=== PATIENT | female | born 1960 | race Caucasian/White ===

== ENCOUNTER 2019-10-24 07:42 | Observation (INO) | payer BC ==
[2019-10-24] MEDS ORDERED: LABETALOL HCL 5 MG/ML 20ML VIAL IV ONE (08:09)
[2019-10-24] MEDS ORDERED: MORPHINE SULFATE 4 MG/1ML SYG ONE ×2 (08:09→09:09)
[2019-10-24] MEDS ORDERED: ONDANSETRON HCL 4 MG/2 ML VIAL ONE ×2 (08:14→10:42)
[2019-10-24 08:28] LABS: BASOPHILS % (AUTO) 1.1 % (0.0-5.0); HEMATOCRIT 45.6 % (36-48); LYMPHOCYTES % (AUTO) 36.9 % (21.0-51.0); MEAN CORPUSCULAR HEMOGLOBIN 30.2 pg (27.0-33.0); MEAN CORPUSCULAR HGB CONC 33.6 g/dL (32.0-36.0); MEAN CORPUSCULAR VOLUME 90.1 fL (79-99); MONOCYTES % (AUTO) 11.8 % (3.0-13.0); NEUTROPHILS % (AUTO) 49.1 % (40.0-77.0); PLATELET COUNT (AUTO) 269 K/uL (130-400); RED BLOOD CELL COUNT(AUTO) 5.06 MIL/uL (4.00-5.50); RED CELL DISTRIBUTION WIDTH 12.4 % (11.0-15.5); WHITE BLOOD COUNT (AUTO) 8.4 K/uL (4.8-10.8)
[2019-10-24 08:30] LABS: APPEARANCE,URINE Clear (CLEAR); BILIRUBIN,URINE Negative (NEGATIVE); GLUCOSE, URINE (UA) Negative (NEGATIVE); KETONES,URINE Negative (NEGATIVE); LEUKOCYTE ESTERASE ,URINE Negative (NEGATIVE); NITRATE,URINE Negative (NEGATIVE); OCCULT BLOOD,URINE Negative (NEGATIVE); PROTEIN,URINE Negative (NEGATIVE); UROBILINOGEN,URINE 0.2 mg/dL (0.2-1.0)
[2019-10-24 08:37] LABS: COLOR,URINE COLORLESS (YELLOW)
[2019-10-24 08:39] LABS: CREATININE 0.9 mg/dL (0.5-1.5); POTASSIUM 3.4 mmol/L (3.5-5.1)
[2019-10-24 08:43] LABS: ALBUMIN 4.2 g/dL (3.5-5.0); BILIRUBIN,TOTAL 0.7 mg/dL (0.2-1.0); TOTAL PROTEIN, SERUM 7.8 g/dL (6.0-8.3)
[2019-10-24 08:44] LABS: INR 0.94 (0.85-1.15); PARTIAL THROMBOPLASTIN TIME 26.5 SEC (26.3-35.5); PROTHROMBIN TIME 9.9 SEC (9.6-11.6)
[2019-10-24] MEDS ORDERED: DEXTROSE 5% IV PRN (09:00)
[2019-10-24] MEDS ORDERED: WATER IV PRN (09:00)
[2019-10-24] MEDS ORDERED: LABETALOL HCL IV PRN (09:00)
[2019-10-24] MEDS ORDERED: CLONIDINE HCL 0.1 MG TABLET ONE (10:10)
[2019-10-24] MEDS ORDERED: AMLODIPINE BESYLATE 5 MG TAB PO SCH (10:26)
[2019-10-24] MEDS ORDERED: CLONIDINE HCL 0.1 MG TABLET PO PRN (10:30)
[2019-10-24] MEDS ORDERED: ALPRAZOLAM 0.5 MG TABLET PO PRN (10:30)
[2019-10-24] MEDS ORDERED: AMLODIPINE BESYLATE 5 MG TAB ONE (11:05)
[2019-10-24] MEDS ORDERED: LOSARTAN 50 MG TABLET ONE (11:05)
[2019-10-24] MEDS ORDERED: SODIUM CHLORIDE 0.9% 1000ML 1,000 ML IV SCH (12:59)
[2019-10-24] MEDS ORDERED: LACTULOSE 20 GM/30 ML UDCUP PO PRN (13:00)
[2019-10-24] MEDS ORDERED: ONDANSETRON HCL 4 MG/2 ML VIAL IV PRN (13:00)
[2019-10-24] MEDS ORDERED: MAG HYDROX/AL HYDROX/SIMETH ES 30 ML SUSP UDCUP PO PRN (13:00)
[2019-10-24] MEDS ORDERED: LIDOCAINE HCL 2% VISCOUS 30 ML, MAG HYDROX/AL HYDROX/SIMETH 30 ML, BELLADONNA-PHENOBARB... PO PRN ×3 (13:00)
[2019-10-24] MEDS ORDERED: METOCLOPRAMIDE 10 MG/2 ML VIAL ONE (13:11)
[2019-10-24] MEDS ORDERED: LIDOCAINE HCL 2% VISCOUS 30 ML, MAG HYDROX/AL HYDROX/SIMETH 30 ML, DICYCLOMINE HCL 20 MG PO PRN ×3 (13:15)
[2019-10-24] MEDS ORDERED: POTASSIUM CHLORIDE 20MEQ/100ML 100 ML IV PRN (13:15)
[2019-10-24] MEDS ORDERED: POTASSIUM CHLORIDE 20 MEQ ERTAB PO PRN (13:15)
[2019-10-24] MEDS ORDERED: LIDOCAINE HCL-MPF 1% 2ML VIAL IJ PRN (13:15)
[2019-10-24] MEDS ORDERED: COMPOUND PO MISCELLANEOUS 1 EACH MISC MISC PRN (13:15)
[2019-10-24] MEDS ORDERED: METOCLOPRAMIDE 10 MG/2 ML VIAL IVP PRN (13:15)
[2019-10-24] MEDS ORDERED: ACETAMINOPHEN EXTRA STRENGTH 500 MG TABLET PO PRN (13:15)
[2019-10-24] MEDS ORDERED: POTASSIUM CHLORIDE 10% ELIXIR 20 MEQ/15 ML UDCUP PO PRN (13:15)
[2019-10-24] MEDS ORDERED: ESTR1PAT87 TD (14:14)
[2019-10-24] MEDS ORDERED: TRAZ-185 PO ×2 (14:14→18:41)
[2019-10-24] MEDS ORDERED: FLUT44HFA IH (14:14)
[2019-10-24] MEDS ORDERED: LOSA50TA64 PO ×2 (14:14→18:41)
[2019-10-24] MEDS ORDERED: CYCL5TAB PO (14:14)
[2019-10-24] MEDS ORDERED: CALC600T12 PO (14:14)
[2019-10-24] MEDS ORDERED: MAGN300C PO (14:14)
--- NOTE | 2019-10-24 17:23 | NUR ---
Initial Assessment SW met with patient. Patient lives with spouse. No home services. DME: [facility]. Patient is able to complete ADL's independently and drives. 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 PCP is Dr. Maddy Castaneda. Pharmacy is [facility] located in [place]. DCP is home. Addendum: 10/24/19 at 1725 by KRISTEN ZUNIGA SS Amended: Links added.
[2019-10-24] MEDS ORDERED: CLON0.1T PO (18:41)
--- NOTE | 2019-10-24 19:44 | NUR ---
DISCHARGE INSTRUCTIONS PROVIDED IN ED ROOM 14. PT MUST CALL TO SCHEDULE FOLLOW UP APPT TO BE SEEN WITHIN 2-4DAYS. EDUCATED ON DX, S/S TO MONITOR FOR, WHEN TO SEEK EMERGENCY CARE VS DIAL 911. NEW RX TRANSMITTED TO [facility]. VERIFIED IT WAS REC'D. DISCUSSED PURPOSE, ROUTE, FREQUENCY OF TREATMENT WELL SIDE EFFECTS AND ADVERSE EFFECTS. PIV ALREADY REMOVED BY ER NURSE. PT DEPARTED ER WITH AT SIDE. IN STABLE CONDITION.
[2019-10-24] MEDS ORDERED: TRAZODONE HCL 100 MG TABLET PO SCH (21:00)
[2019-10-24] MEDS ORDERED: FAMOTIDINE 20MG TAB 20 MG TAB PO SCH (21:00)
[2019-10-25] MEDS ORDERED: LOSARTAN 100 MG TABLET PO SCH (09:00)
== END 2019-10-24 19:59 | disposition home or self-care (01) ==
LOC: EDH 07:42 → EDHIP 09:48
PROVIDERS: ADMIT Internal Medicine; ATTEND Internal Medicine
DX: I16.0 Hypertensive urgency (principal); R51 Headache; K21.9 Gastro-esophageal reflux disease without esophagitis; M41.9 Scoliosis, unspecified; M85.80 Other specified disorders of bone density and structure, unspecified site; M16.6 Other bilateral secondary osteoarthritis of hip; M47.819 Spondylosis without myelopathy or radiculopathy, site unspecified; J45.909 Unspecified asthma, uncomplicated; I34.1 Nonrheumatic mitral (valve) prolapse; G43.909 Migraine, unspecified, not intractable, without status migrainosus; F41.1 Generalized anxiety disorder; E04.2 Nontoxic multinodular goiter; I10 Essential (primary) hypertension; Z90.79 Acquired absence of other genital organ(s); Z90.710 Acquired absence of both cervix and uterus; Z79.51 Long term (current) use of inhaled steroids; Z79.899 Other long term (current) drug therapy; Z88.8 Allergy status to other drugs, medicaments and biological substances
CPT/HCPCS: 36415; 70450; 80053; 81003; 84443; 84484; 85025; 85610; 85730; 93005; 99291; G0378 ×7; J2270 ×2; J2405 ×2; J2765; J3490 ×2; J7060

== ENCOUNTER → 2019-10-31 | Outpatient (CLI) | payer BC ==
[~2019-10-31] MED LIST: CALC600T12 PO; CLON0.1T PO; ESTR1PAT87 TD; FLUT44HFA IH; LOSA50TA64 PO; MAGN300C PO; TRAZ-185 PO
== END | disposition home or self-care (01) ==
LOC: RAH 07:43
PROVIDERS: ATTEND Internal Medicine
DX: I07.1 Rheumatic tricuspid insufficiency (principal); I70.1 Atherosclerosis of renal artery; I10 Essential (primary) hypertension
CPT/HCPCS: 76770; 93306; 93356; 93975

== ENCOUNTER → 2019-11-22 | Outpatient (CLI) | payer BC ==
[~2019-11-22] MED LIST changes: +IOHEXOL-350 50ML VIAL IV ONE; +IOHEXOL-350 75 ML VIAL IV ONE
== END | disposition home or self-care (01) ==
LOC: RAH 09:02
PROVIDERS: ATTEND Internal Medicine
DX: K76.0 Fatty (change of) liver, not elsewhere classified (principal); I70.1 Atherosclerosis of renal artery; K57.30 Diverticulosis of large intestine without perforation or abscess without bleeding
CPT/HCPCS: 74175; Q9967 ×2

== ENCOUNTER → 2020-02-27 | Outpatient (CLI) | payer BC ==
[~2020-02-27] MED LIST changes: -CALC600T12 PO; +CALC600T15 PO; -IOHEXOL-350 50ML VIAL IV ONE; -IOHEXOL-350 75 ML VIAL IV ONE
== END | disposition home or self-care (01) ==
LOC: RAH 13:17
PROVIDERS: ATTEND Internal Medicine
DX: I10 Essential (primary) hypertension (principal); I34.1 Nonrheumatic mitral (valve) prolapse
CPT/HCPCS: 93880

== ENCOUNTER → 2020-06-02 | Outpatient (CLI) | payer OTHER | END | disposition home or self-care (01) | LOC: RAH 13:22 | PROVIDERS: ATTEND Internal Medicine Cardiovascular Disease | DX: Z13.6 Encounter for screening for cardiovascular disorders (principal) | CPT/HCPCS: 75571 ==

== ENCOUNTER 2021-01-15 05:45 | Day surgery (SDC) | payer BC ==
[2021-01-13 11:25] LABS: BASOPHILS % (AUTO) 0.9 % (0.0-5.0); HEMATOCRIT 38.8 % (36-48); LYMPHOCYTES % (AUTO) 23.9 % (21.0-51.0); MEAN CORPUSCULAR HEMOGLOBIN 29.7 pg (27.0-33.0); MEAN CORPUSCULAR HGB CONC 33.5 g/dL (32.0-36.0); MEAN CORPUSCULAR VOLUME 88.8 fL (79-99); MONOCYTES % (AUTO) 9.7 % (3.0-13.0); NEUTROPHILS % (AUTO) 64.2 % (40.0-77.0); PLATELET COUNT (AUTO) 279 K/uL (130-400); POTASSIUM 3.8 mmol/L (3.5-5.1); RED BLOOD CELL COUNT(AUTO) 4.37 MIL/uL (4.00-5.50); RED CELL DISTRIBUTION WIDTH 12.6 % (11.0-15.5); WHITE BLOOD COUNT (AUTO) 9.3 K/uL (4.8-10.8)
[2021-01-13 11:29] LABS: APPEARANCE,URINE Clear (CLEAR); BILIRUBIN,URINE Negative (NEGATIVE); COLOR,URINE Yellow (YELLOW); GLUCOSE, URINE (UA) Negative (NEGATIVE); KETONES,URINE Negative (NEGATIVE); LEUKOCYTE ESTERASE ,URINE Trace (NEGATIVE); NITRATE,URINE Negative (NEGATIVE); OCCULT BLOOD,URINE Negative (NEGATIVE); PH,URINE 6.5 (5.0-8.0); PROTEIN,URINE Negative (NEGATIVE); UROBILINOGEN,URINE 0.2 mg/dL (0.2-1.0)
[2021-01-13 11:36] LABS: BACTERIA,URINE Rare /HPF (None Seen); RBC,URINE 0-1 /HPF (0-1); SQUAMOUS EPITHELIAL CELL,UR Rare /HPF (0-2)
[2021-01-13 11:49] LABS: INR 0.99 (0.85-1.15); PROTHROMBIN TIME 10.8 SEC (9.6-11.6)
[2021-01-13 11:51] LABS: PARTIAL THROMBOPLASTIN TIME 29.3 SEC (26.3-35.5)
[2021-01-14 12:03] VITALS: BP 142/92
[~2021-01-15] VITALS: Ht 162.6 cm; Wt 51.3 kg
[2021-01-15] VITALS (11 sets, daily range): BP systolic 97–120; BP diastolic 64–85
[~2021-01-15 05:45] MED LIST changes: +AMLO-257 PO; -CALC600T15 PO; +CHLO25TA3 PO; -ESTR1PAT87 TD; -FLUT44HFA IH; +IRBE300T18 PO; +LABE200T5 PO; -LOSA50TA64 PO; -MAGN300C PO; -TRAZ-185 PO
[2021-01-15] MEDS ORDERED: SODIUM CHLORIDE 0.9% 1000ML 1,000 ML IV ONE (06:11)
[2021-01-15] MEDS ORDERED: HEPARIN SODIUM 1000UNIT/ML 10ML VIAL ONE (07:16)
[2021-01-15] MEDS ORDERED: SODIUM BICARB 50MEQ 50ML VIAL 50 ML ONE (07:16)
[2021-01-15] MEDS ORDERED: NITROGLYCERIN 2 MG/VIAL VIAL IV ONE (07:16)
[2021-01-15] MEDS ORDERED: MIDAZOLAM HCL 1 MG/ML 2ML VIAL ONE ×2 (07:17→07:31)
[2021-01-15] MEDS ORDERED: MEPERIDINE-PF 25 MG/ML SYG ONE ×2 (07:17→07:31)
[2021-01-15] MEDS ORDERED: LIDOCAINE HCL 400MG/20ML VIAL ONE (07:17)
[2021-01-15] MEDS ORDERED: IODIXANOL 320 MG/ML 100 ML VIAL ONE (07:17)
[2021-01-15] MEDS ORDERED: IOHEXOL-350 75 ML VIAL IV ONE (08:25)
[2021-01-15] MEDS ORDERED: CLOPIDOGREL BISULFATE 300 MG TAB ONE (08:43)
[2021-01-15] MEDS ORDERED: ASPIRIN 325MG EC TAB 325 MG TABLET.DR PO ONE (08:43)
[2021-01-15] MEDS ORDERED: ALPRAZOLAM 0.5 MG TABLET PO SCH (09:00)
[2021-01-15] MEDS ORDERED: SODIUM CHLORIDE 0.9% 1000ML 1,000 ML IV SCH (09:00)
== END 2021-01-15 14:38 | disposition home or self-care (01) ==
LOC: DAH 05:45
PROVIDERS: ATTEND Internal Medicine Cardiovascular Disease
DX: I15.0 Renovascular hypertension (principal); I70.1 Atherosclerosis of renal artery; Z90.89 Acquired absence of other organs; Z90.710 Acquired absence of both cervix and uterus; Z90.722 Acquired absence of ovaries, bilateral; Z79.01 Long term (current) use of anticoagulants; Z79.899 Other long term (current) drug therapy; Z98.890 Other specified postprocedural states; Z82.49 Family history of ischemic heart disease and other diseases of the circulatory system
CPT/HCPCS: 36415 ×2; 37236; 37246; 71045; 80048; 81001; 85025; 85347 ×2; 85610; 85730; 93005; A4215; A4216; A4221; A4222; A4223 ×3; A4335; A4606; A4663; C1725; C1760; C1769; C1876; C1887; C1894; J1644 ×2; J2175 ×2; J2250 ×2; J3490 ×3; J7030 ×2; Q9967 ×2; 36252; 99156; 99157